=== PATIENT | female | born 1930 | race Caucasian/White ===

== ENCOUNTER 2016-12-12 06:58 | Day surgery (SDC) | payer BC ==
--- NOTE | 2016-12-06 14:34 | HP ---
Admitting History and Physical - Primary Care Physician PCP: Rodolfo Phillips - Admission Chief Complaint: Right breast cancer History of Present Illness: 86 year old postmenapausal female with family history of breast cancer who presents with right 10:00 breast mass on screening mammogram 1.0 cm. US showed .7 cm mass right 10 to 12:00 birad 5. 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 History Source: Patient Limitations to Obtaining History: No Limitations - Past Medical History Cardiovascular: Yes: HTN, Hyperlipdemia Endocrine: Yes: Hypothyroidism Additional Past Medical History: rotator cuff tears - Past Surgical History Additional Past Surgical History: foot surgery - Smoking History Smoking history: Never smoked Aproximately how many cigarettes per day: 0 - Alcohol/Substance Use Hx Alcohol Use: No Home Medications - Allergies Allergies/Adverse Reactions: Allergies Allergy/AdvReac Type Severity Reaction Status Date / Time No Known Allergies Allergy Verified 08/02/12 06:29 - Home Medications Home Medications: Ambulatory Orders Atorvastatin Ca [Lipitor] 40 mg PO DAILY 08/01/12 Acetaminophen [Tylenol .Regular Strength -] 650 mg PO Q6H PRN #0 tablet Atorvastatin Ca [Lipitor] 40 mg PO HS #0 tablet 08/04/12 Bacitracin - [Bacitracin Topical Ointment -] 1 applic TP DAILY #0 applic Metoprolol Succinate [Toprol XL -] 25 mg PO DAILY #0 tab.sr.24h 08/04/12 Vickey/Polymyx B Sulf/Dexameth [Maxitrol -] 1 applic OS BID #0 tube 08/04/12 Vickey/Polymyx B Sulf/Dexameth [Maxitrol -] 1 drop OS QID #0 drops 08/04/12 Propylthiouracil [Ptu -] 50 mg PO DAILY #0 tablet 08/04/12 Family Disease History - Family Disease History Family Disease History: CA: Mother (breast cancer 67) Physical Examination Constitutional: Yes: Well Nourished Breast(s): Yes: Other (symmetrical no palpable masses or adenopathy in either breast post bx changes right breast) Problem List - Problems (1) Breast cancer, right Code(s): C50.911 - MALIGNANT NEOPLASM OF UNSP SITE OF RIGHT FEMALE BREAST Qualifiers: Breast location: upper outer quadrant of breast Patient gender: female Qualified Code(s): C50.411 - Malignant neoplasm of upper-outer quadrant of right female breast Assessment/Plan Right breast wide excision mammogram needle localization sentenel node biopsy possible axillary node dissection, intraop radiation
[2016-12-12 07:47] VITALS: BMI 21.4
[2016-12-12] MEDS ORDERED: KETOROLAC TROMETHAMINE 30 MG/1 ML VIAL IVPUSH PRN (09:27)
[2016-12-12] MEDS ORDERED: ONDANSETRON 4 MG/2 ML VIAL IVPB PRN (09:27)
[2016-12-12] MEDS ORDERED: DEXTROSE 5%-0.45% SALINE 1,000 ML IV SCH (09:30)
[2016-12-12] MEDS ORDERED: ISOSULFAN BLUE 10 MG/ML VIAL SQ ONE (09:35)
[2016-12-12] MEDS ORDERED: PROPOFOL 20 ML ONE (09:41)
[2016-12-12] MEDS ORDERED: MIDAZOLAM HCL 2 MG/2 ML SINGLE DOSE VIAL ONE (09:42)
[2016-12-12] MEDS ORDERED: ceFAZolin SODIUM 1 GM VIAL ONE (09:43)
[2016-12-12] MEDS ORDERED: LIDOCAINE HCL/PF 2% SDV 5ML VIAL ONE (09:43)
[2016-12-12] MEDS ORDERED: SUCCINYLCHOLINE CHLORIDE 200 MG/10 ML VIAL ONE (09:57)
[2016-12-12] MEDS ORDERED: DEXAMETHASONE SOD PHOSPHATE 4 MG/1 ML VIAL ONE (10:20)
[2016-12-12] MEDS ORDERED: ROCURONIUM BROMIDE 50 MG/5 ML VIAL ONE (11:32)
[2016-12-12] MEDS ORDERED: KETOROLAC TROMETHAMINE 30 MG/1 ML VIAL ONE (13:41)
[2016-12-12] MEDS ORDERED: ONDANSETRON 4 MG/2 ML VIAL ONE (14:27)
[2016-12-12] MEDS ORDERED: oxyCODONE HCL 5 MG TABLET PO PRN (15:08)
[2016-12-12 17:07] VITALS: BP 125/68; PULSE 74; TEMP 98
--- NOTE | 2016-12-13 05:56 | OP ---
DATE OF OPERATION: 12/12/2016 PREOPERATIVE DIAGNOSIS: Right breast cancer. POSTOPERATIVE DIAGNOSIS: Right breast cancer. PROCEDURE: Post lumpectomy, intraoperative radiotherapy for right breast cancer. ATTENDING SURGEON: Rodolfo Phillips MD ENGINE WIPER/RADIATION ONCOLOGIST: Spencer Velazquez MD ANESTHESIA: General. COMPLICATIONS: None. 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 DESCRIPTION OF PROCEDURE: Dr. Phillips performed right lumpectomy and node sampling, which he has dictated. After excision of additional margins, the lumpectomy cavity was sized with a 4.5-cm diameter spherical applicator. The applicator was placed in the cavity at the 10 o'clock position of the right breast. The surrounding breast tissue was synched around the applicator with a Vicryl pursestring suture. A clinical and ultrasound simulation was performed to ensure that the applicator was located within the operative bed with close apposition to the surrounding breast tissue to the surface of the applicator. Saline-soaked gauze was placed between the skin and breast tissue to ensure adequate separation between the skin and the applicator. Ultrasound measurements confirm the minimum separation of 1.12 cm at the 12 o'clock aspect of the applicator. The applicator was pulled away from the chest wall to minimize dose to the underlying organs. Shielding material was placed over the breast to reduce scattered radiation. The patient received a dose of 20 Gy prescribed to 0 mm from the applicator surface with a 50KV x-ray using the Intrabeam system. Prior to treatment, the system was double-checked by our physicist with appropriate nurse quality measures. The time required for the treatment was 36 minutes and 2 seconds at a dose rate of 0.547 Gy per minute. When the treatment was completed, a survey of the patient in the room confirmed that the source was off. There were no complications or unexpected interruptions. Dr. Phillips removed the applicator from the patient and completed the surgery. Patient was discharged to the recovery room following the surgery. Otto [id number] cc: Rodolfo Phillips MD MTDD
--- NOTE | 2016-12-14 10:43 | OP ---
DATE OF OPERATION: 12/12/2016 PREOPERATIVE DIAGNOSIS: Right breast cancer. POSTOPERATIVE DIAGNOSIS: Right breast cancer. PROCEDURE: Right mammographically localized wide excision with tissue transfer, sentinel lymph node biopsy, and intraoperative radiation therapy. ANESTHESIA: General intubation. ATTENDING SURGEON: Rodolfo Phillips MD PSYCHIATRIC AIDES TEACHER: MIHAELA Shay ESTIMATED BLOOD LOSS: Minimal. COMPLICATIONS: None. DESCRIPTION OF PROCEDURE: Patient was made aware of the risks and benefits of the procedure and consented. Preoperatively, patient went to the radiology suite where needle was placed next to the indexed lesion. She was then placed in the supine position on the operating table, and after general anesthesia was induced, the patient was intubated. Then, 2.5 mL of 1% isosulfan blue was locally infiltrated into the peritumoral tissues. Then, in approximately 10 minutes of gentle manual compression, a curvilinear incision was made at the right axilla using blunt and sharp dissection. Tissues were dissected down where we found 3 enlarged firm lymph nodes, and these were excised and submitted for pathology. Palpation of the rest of the axilla reveals no other suspicious or blue lymph nodes. Wound was copiously irrigated with normal saline. Hemostasis was maintained with electrocautery. The wound was then closed with deep 2-0 Vicryl followed by a running subcuticular 4- 0 Monocryl. The breast was then approached. A curvilinear incision was made next to the needle. Using electrocautery, thick skin flaps were made. The needle was withdrawn through the puncture site and a biopsy of the wound tissues around the wire were then sharply excised and submitted with a short suture superior, long suture lateral. Specimen radiograph confirmed the presence of the indexed lesion. Additional segments were taken superior, inferior, medial, lateral, deep, and anterior with clips at the new margin. The wound was copiously irrigated with normal saline. Hemostasis was maintained with electrocautery. The cavity was measured at 4.5 cm. So, a 4.5-cm probe was then placed into the cavity and with the tissue apposed to it using a figure-of-8 suture of 0 Vicryl. The skin was protected with saline-soaked gauze. Intraoperative ultrasound showed that all the distances from the skin to the probe were greater than 1 cm. Radiopaque material was placed over the chest wall, and patient underwent approximately 35 minutes of intraoperative radiation therapy. The probe, suture, and gauze were then removed. Using electrocautery, tissue flaps were made superiorly and inferiorly for approximately 8 cm in each direction and rotated into the tissue. These were apposed using figure-of-8 sutures of 2-0 Vicryl. Skin flaps were also made to reduce the traction. The skin was then closed with deep dermal sutures of 3-0 Vicryl followed by running subcuticular 4-0 Monocryl. A 1-to-1 mixture of 0.25% bupivicaine and 1% lidocaine was used for postoperative anesthesia. Steri-Strips and a sterile bandage were applied as well as a compression bra, and the patient, having tolerated the procedure well , was transferred to the recovery room in excellent condition. Otto [id number] MTDD
--- NOTE | 2016-12-14 16:09 | PATH ---
Surgical Pathology Report Patient Name: KARI CACERES [facility]. Rec. #: [id number] /Age/Gender: 1930 (Age: 86) / F Account: [id number] Location: [facility] Taken: 12/12/2016 Received: 12/12/2016 Reported: 12/14/2016 Physicians: Rodolfo Phillips M.D. Specimen(s) Received A: RIGHT BREAST WIDE EXCISION B: RIGHT AXILLARY NODE C: RIGHT BREAST ANTERIOR MARGIN D: RIGHT BREAST DEEP MARGIN E: RIGHT BREAST MEDIAL MARGIN F: RIGHT BREAST LATERAL MARGIN G: RIGHT BREAST SUPERIOR MARGIN H: RIGHT BREAST INFERIOR MARGIN Clinical History Wide excision: Invasive carcinoma Final Diagnosis A. BREAST, RIGHT, WIDE EXCISION: MUCINOUS CARCINOMA, HYPERCELLULAR TYPE (NUCLEAR GRADE 2) WITH ASSOCIATED SOLID PAPILLARY COMPONENT. CARCINOMA MEASURES 1.1 CM IN GREATEST DIMENSION, MICROSCOPICALLY. FOCAL DUCTAL CARCINOMA IN SITU (DCIS), FLAT TYPE, INTERMEDIATE NUCLEAR GRADE, PRESENT A MINOR COMPONENT. CARCINOMA EXTENDS TO THE ANTERIOR MARGIN AND IS CLOSE TO (< 1 MM) THE DEEP MARGIN. SEE SPECIMEN C-H FOR FINAL MARGINS. NO LYMPHOVASCULAR INVASION IS IDENTIFIED. PRIOR BIOPSY SITE CHANGES ARE PRESENT. PATHOLOGIC STAGE (pTNM): pT1c pN0. SEE ALSO CARCINOMA CASE SUMMARY BELOW. B. LYMPH NODES, RIGHT AXILLA, EXCISION: FIVE BENIGN LYMPH NODES (0/5). C. BREAST, RIGHT, ANTERIOR MARGIN, EXCISION: BENIGN BREAST TISSUE. D. BREAST, RIGHT, DEEP MARGIN, EXCISION: BREAST TISSUE SHOWING FOCAL ATYPICAL DUCTAL HYPERPLASIA (ADH). E. BREAST, RIGHT, MEDIAL MARGIN, EXCISION: BREAST TISSUE SHOWING FOCAL ATYPICAL DUCTAL HYPERPLASIA (ADH). F. BREAST, RIGHT, LATERAL MARGIN, EXCISION: BENIGN FIBROADIPOSE TISSUE. G. BREAST, RIGHT, SUPERIOR MARGIN, EXCISION: BENIGN BREAST TISSUE. H. BREAST, RIGHT, INFERIOR MARGIN, EXCISION: BENIGN BREAST TISSUE. Comments Breast Invasive Carcinoma: Surgical Pathology Cancer Case Summary Based on AJCC/UICC TNM, 7th edition Procedure _X_ Excision without image-guided localization Lymph Node Sampling _X_ Axillary dissection (partial dissection) Specimen Laterality _X_ Right Tumor Size: Size of Largest Invasive Carcinoma: 1.1 cm Tumor Focality _X_ Single focus of invasive carcinoma Macroscopic and Microscopic Extent of Tumor Nipple _X_ Not applicable (excisions less than total mastectomy) Ductal Carcinoma In Situ (DCIS) _X_ DCIS is present _X_ as a minor component (< 25% of tumor) Histologic Type of Invasive Carcinoma : _X_ Mucinous carcinoma Histologic Grade: (Lobo Histologic Score) Tubular Differentiation _X_ Score cannot be determined Nuclear Pleomorphism _X_ Score 2 Mitotic Rate _X_ Score 2 Overall Grade _X_ Score cannot be determined. Margins _X_ Margins uninvolved by invasive carcinoma Distance from closest margin: carcinoma extends to the anterior margin and is < 1 mm from the deep margin in wide excision A; final anterior and deep margins (C&D) are uninvolved by carcinoma. _X_ Margins uninvolved by DCIS Distance from closest margin: 5 mm from anterior margin in wide excision A. Final anterior margin C is negative for DCIS. Lymph-Vascular Invasion _X_ Not identified Lymph Nodes Total number of lymph nodes examined (sentinel and nonsentinel): 5 Number of sentinel lymph nodes examined: 0 Number of lymph nodes with macrometastases ( > 2 mm): 0 Number of lymph nodes with micrometastases (>0.2 mm to 2 mm and/or >200cells):0 Number of lymph nodes with isolated tumor cells (=0.2 mm and =200 cells): 0 Extranodal Extension _X_ Not applicable Pathologic Staging (pTNM) Primary Tumor (Invasive Carcinoma): pT1c Regional Lymph Nodes (pN): pN0 Biomarker Studies Results of ER and MT studies performed on prior biopsy ([id number]) at [facility] are as follows: ER (clone [id number] mouse monoclonal antibody by [employer]): 100 % nuclear staining with strong intensity (Positive). MT (clone16 mouse monoclonal antibody by [employer]):100 % nuclear staining with strong intensity (Positive). Results of Her2 (IHC) & Ki-67 studies performed on prior biopsy ( [id number]) at [place], [place] ( [id number]) are as follows: Her2 IHC (EP3 from [employer], formerly known as [id number], using [employer] Polymer Refine detection kit): 0 (Negative). Ki67: 20% (Intermediate). Electronically Signed Palmira Hutchinson M.D. Gross Description A. Received in formalin, labeled "right breast wide excision," is a 3.0 x 2.7 x 1.9 cm. kat-yellow, irregular, portion of fibroadipose tissue. There is a short suture marking the superior aspect and a long suture marking the lateral aspect, per the surgeon. There is no needle localization wire present. There is no skin present. The specimen is inked as follows: superior and lateral blue; inferior green; medial yellow; anterior red; deep black. The specimen is serially sectioned from superior to inferior. Sectioning reveals a 1.1 x 1.0 x 0.7 cm circumscribed kat, firm mass focally abutting the anterior margin and at 1 mm from the deep margin. Additionally, the mass is at 0.3 cm from the medial margin and 0.6 cm from the lateral margin. The remaining margins appear widely clear of the mass. The specimen is entirely and sequentially submitted in 6 cassettes with the superior margin in cassette 1, the inferior margin in cassette 6 and the mass in cassettes 3-5. Time to formalin fixation: 15 minutes Total formalin fixation time: Approximately 31 hours. B. Received in formalin, labeled "right axillary nodes," are 5 kat, irregular lymph nodes with attached fat ranging from 0.3-1.4 cm in greatest dimension. The lymph nodes are entirely submitted in 6 cassettes as follows: 1-one whole lymph node; 2-4-one whole bisected lymph node each; 5-6-one whole trisected lymph node. C. Received in formalin, labeled "right breast anterior margin," is a 1.7 x 1.5 x 0.4 cm irregular portion of fibroadipose tissue with a clip marking the new margin, per the surgeon. The new margin is inked green and the specimen is serially sectioned. The specimen is entirely submitted in 2 cassettes. D. Received in formalin, labeled "right breast deep margin," is a 2.0 x 1.7 x 0.4 cm irregular portion of fibroadipose tissue with a clip marking the new margin, per the surgeon. The new margin is inked green and the specimen is serially sectioned. The specimen is entirely submitted in 3 cassettes. E. Received in formalin, labeled "right breast medial margin," is a 2.1 x 1.4 x 0.4 cm irregular portion of fibroadipose tissue with a clip marking the new margin, per the surgeon. The new margin is inked green and the specimen is serially sectioned. The specimen is entirely submitted in 2 cassettes. F. Received in formalin, labeled "right breast lateral margin," is a 1.6 x 1.2 x 0.3 cm irregular portion of fibroadipose tissue with a clip marking the new margin, per the surgeon. The new margin is inked green and the specimen is serially sectioned. The specimen is entirely submitted in 2 cassettes. G. Received in formalin, labeled "right breast superior margin," is a 1.6 x 1.1 x 0.3 cm irregular portion of fibroadipose tissue with a clip marking the new margin, per the surgeon. The new margin is inked green and the specimen is serially sectioned. The specimen is entirely submitted in 2 cassettes. H. Received in formalin, labeled "right breast inferior margin," and a 1.7 x 1.0 x 0.5 cm irregular portion of fibroadipose tissue with a clip marking the new margin, per the surgeon. The new margin is inked green and the specimen is serially sectioned. The specimen is entirely submitted in 2 cassettes. 12/13/2016 [facility]
== END 2016-12-12 17:00 | disposition home or self-care (01) ==
LOC: FASU 06:58
PROVIDERS: ATTEND Surgery Surgical Oncology
PROC: 0HBT0ZZ Excision of Right Breast, Open Approach (ICD-10-PCS; principal; 2016-12-12 10:17)
PROC: 07B50ZX Excision of Right Axillary Lymphatic, Open Approach, Diagnostic (ICD-10-PCS; 2016-12-12 10:17)
PROC: DMY17ZZ Contact Radiation of Right Breast (ICD-10-PCS; 2016-12-12 10:17)
PROC: 0HX5XZZ Transfer Chest Skin, External Approach (ICD-10-PCS; 2016-12-12 10:17)
DX: C50.411 Malignant neoplasm of upper-outer quadrant of right female breast (principal); D05.81 Other specified type of carcinoma in situ of right breast; N60.81 Other benign mammary dysplasias of right breast; I10 Essential (primary) hypertension; E78.5 Hyperlipidemia, unspecified; E03.9 Hypothyroidism, unspecified; Z80.3 Family history of malignant neoplasm of breast
CPT/HCPCS: 19281; 76641-TC-50; 77290; 77300; 77316; 77332; 77370-TC; 77424; 88307-TC; 94760; C9726

== ENCOUNTER → 2019-02-21 | Day surgery (SDC) | payer BC ==
--- NOTE | 2019-02-23 16:08 | OP ---
DATE OF OPERATION: 02/21/2019 PREOPERATIVE DIAGNOSIS: Right axillary adenopathy. POSTOPERATIVE DIAGNOSIS: Right axillary adenopathy. PROCEDURE: Right ultrasound-guided axillary fine needle aspiration of a lymph node. ANESTHESIA: Local. ATTENDING SURGEON: Rodolfo Daigle MD ESTIMATED BLOOD LOSS: Minimal. COMPLICATIONS: None. PROCEDURE: Patient was made aware of the risks and benefits of the procedure and consented. She was placed in the supine position. Under sterile conditions with 1% lidocaine for local anesthesia a 22-gauge spinal needle was placed into the axillary node. Suction was applied and the needle was maneuvered for an aspiration. This was then smeared on 4 slides as well as given for cell block. The slides were placed in alcohol. Well tolerated by patient. Sterile dressing applied. Will contact her with the results. RODOLFO DEAN M.D. [id number]
--- NOTE | 2019-02-25 16:33 | PATH ---
Cytology Non-Gynecological Report Patient Name: KARI CACERES [facility]. Rec. #: [id number] /Age/Gender: 1930 (Age: 88) / F Account: [id number] Location: [facility] Taken: 02/21/2019 Received: 02/24/2019 Reported: 02/25/2019 Physicians: Rodolfo Phillips M.D. Specimen(s) Received RIGHT AXILLARY NODE FNA Clinical History Right breast cancer Final Diagnosis AXILLARY NODE, RIGHT, FINE NEEDLE ASPIRATION: SATISFACTORY FOR EVALUATION. NEGATIVE FOR MALIGNANT CELLS. HETEROGENEOUS LYMPHOID POPULATION. NO EPITHELIAL CELLS OR CARCINOMA IDENTIFIED. HETEROGENEOUS LYMPHOCYTES, LYMPHOHISTIOCYTIC AGGREGATES, AND FEW TINGIBLE BODY MACROPHAGES PRESENT. Comment: Findings favor a reactive process. Suggest clinical and radiologic correlation. If there is clinical suspicion for a lymphoproliferative disorder, suggest further workup including flow cytometry studies, as warranted. Personal history of breast cancer and prior materials are noted Electronically Signed Michaela Son M.D. Gross Description Received 4 slides in 95% alcohol, Pap stained. Approximately 20 cc of clear fluid received fixed in 50% alcohol. One cytofunnel prepared and Pap stained. One cellblock prepared.
== END | disposition home or self-care (01) ==
LOC: FRADUS-SUR 13:34
PROVIDERS: ATTEND Surgery Surgical Oncology
PROC: 07953ZX Drainage of Right Axillary Lymphatic, Percutaneous Approach, Diagnostic (ICD-10-PCS; principal; 2019-02-21)
PROC: BH40ZZZ Ultrasonography of Right Breast (ICD-10-PCS; 2019-02-21)
DX: R59.9 Enlarged lymph nodes, unspecified (principal)
CPT/HCPCS: 10005; 76942; 87899; 88173; 88305-TC